=== PATIENT | female | born 1950 | race Caucasian/White ===

== ENCOUNTER 2017-11-10 10:49 | Outpatient (CLI) | payer MEDICARE, BC ==
[2017-11-10 18:12] LABS: BASOPHILS % (AUTO) 0.7 %; EOSINOPHILS # (AUTO) 0.1 10^3/uL (0.0-0.7); EOSINOPHILS % (AUTO) 1.8 %; HGB - HEMOGLOBIN 13.4 g/dL (12.0-16.0); LYMPHOCYTES # (AUTO) 1.4 10^3/uL (1.5-3.5); LYMPHOCYTES % (AUTO) 31.2 %; MEAN CORPUSCULAR HEMOGLOBIN 28.6 pg (27.0-31.0); MEAN CORPUSCULAR HGB CONC 33.5 g/dL (32.0-36.0); MEAN CORPUSCULAR VOLUME 85.1 fL (81.0-99.0); MEAN PLATELET VOLUME 7.4 fL (7.9-10.8); MONOCYTES # (AUTO) 0.3 10^3/uL (0.0-1.0); MONOCYTES % (AUTO) 6.7 %; NEUTROPHILS # (AUTO) 2.7 10^3/uL (1.5-6.6); NEUTROPHILS % (AUTO) 59.6 %; PLT - PLATELET COUNT 217 10^3/uL (130-450); RED CELL DISTRIBUTION WIDTH 13.1 % (12.0-15.0); WHITE BLOOD COUNT 4.6 x10^3/uL (4.8-10.8)
[2017-11-10 18:58] LABS: ALBUMIN 4.3 g/dL (3.2-5.5); ALBUMIN/GLOBULIN RATIO 1.6 (1.0-2.2); ALKALINE PHOSPHATASE 62 IU/L (42-121); ALT ALANINE AMINOTRANSFERASE 17 IU/L (10-60); AST ASPARTATE AMINOTRANSFERASE 17 IU/L (10-42); BILIRUBIN,TOTAL 0.8 mg/dL (0.2-1.0); BUN - BLOOD UREA NITROGEN 15 mg/dL (6-20); CALCIUM 9.2 mg/dL (8.5-10.3); CARBON DIOXIDE - CO2 28 mmol/L (21-32); CHLORIDE 102 mmol/L (101-111); CHOL/HDL RATIO 3.5 (<4.4); CHOLESTEROL 229 mg/dL; CREATININE 0.9 mg/dL (0.4-1.0); GFR - MDRD 63 (>89); GLUCOSE 87 mg/dL (70-100); HDL CHOLESTEROL 66 mg/dL; LDL CHOLESTEROL,CALCULATED 144 mg/dL; LDL/HDL RATIO 2.2 (<4.4); SODIUM 140 mmol/L (135-145); VLDL CHOLESTEROL 19 mg/dL
== END 2017-11-10 10:50 | disposition home or self-care (01) ==
LOC: LAB.F 10:49
PROVIDERS: ATTEND Physician Assistant Medical
DX: I10 Essential (primary) hypertension (principal); E78.5 Hyperlipidemia, unspecified; E03.9 Hypothyroidism, unspecified
CPT/HCPCS: 36415; 80053; 80061; 83721; 84443; 85025

== ENCOUNTER 2018-02-10 15:22 | Outpatient (CLI) | payer MEDICARE, BC ==
--- NOTE | 2018-02-10 16:10 | XRAY Report ---
Reason: PERSISTENT COUGH AFTER VIRAL RESPIRATORY INFECTION Procedure Date: 02/10/2018 Accession Number: [id number] / [id number] Procedure: XR - Chest 2 View X-Ray CPT Code: 17268 FULL RESULT: EXAM: CHEST RADIOGRAPHY EXAM DATE: 02/10/2018 03:40 PM. CLINICAL HISTORY: Persistent cough after viral respiratory infection. COMPARISON: None. TECHNIQUE: 2 views. FINDINGS: Lungs/Pleura: No focal opacities evident. No pleural effusion. No pneumothorax. Normal volumes. Mediastinum: Heart and mediastinal contours are unremarkable. Other: None. IMPRESSION: No acute cardiopulmonary abnormality. RADIA
== END 2018-02-10 15:23 | disposition home or self-care (01) ==
LOC: DI 15:22
PROVIDERS: ATTEND Registered Nurse
DX: R05 Cough (principal)
CPT/HCPCS: 71046

== ENCOUNTER 2018-06-26 00:59 | Emergency (ER) | payer MEDICARE, BC ==
--- NOTE | 2018-06-26 01:11 | ED Physician Documentation ---
PD HPI HEENT - Stated complaint Stated Complaint: NOSEBLEED - Chief complaint Chief Complaint: Heent - History obtained from History obtained from: Patient - History of Present Illness Timing - onset: How many weeks ago (1) Timing - details: Abrupt onset, Intermittant Pain level max: 0 Pain level now: 0 Location: Nose Improves: Nothing Worsens: Other (nothing) Associated symptoms: No: Fever, Congestion, Rhinorrhea, Facial swelling, Headache, Cough Similar symptoms before: Has not had sx before Recently seen: Not recently seen - Additional information Additional information: c/o intermittent right nare epistaxis x 6 days, atraumatic. Review of Systems Constitutional: reports: Reviewed and negative Nose: reports: Epistaxis. denies: Rhinorrhea / runny nose, Congestion, Sinus pressure / pain PD PAST MEDICAL HISTORY - Past Medical History Past Medical History: No Cardiovascular: Hypertension - Present Medications Home Medications: Ambulatory Orders Medication Instructions Recorded Confirmed Amburana 06/26/18 Lisinopril 10 mg PO DAILY 06/26/18 06/26/18 Naproxen Sodium [Aleve] 220 mg PO PRN PRN 06/26/18 06/26/18 Thyroid,Pork [[place] Thyroid] 15 mg PO DAILY 06/26/18 06/26/18 - Allergies Allergies/Adverse Reactions: Allergies Allergy/AdvReac Type Severity Reaction Status Date / Time neomycin AdvReac Rash Verified 06/26/18 01:05 PD ED PE NORMAL - Vitals Vital signs reviewed: Yes - General General: Alert and oriented X 3, No acute distress, Well developed/nourished - HEENT HEENT: Moist mucous membranes, Pharynx benign PD ED PE EXPANDED - HEENT HEENT: Other (no active bleeding nor dried/clotted blood to suggest source. ) Results - Vitals Vitals: Oxygen O2 Source Room air - Labs Labs: Laboratory Tests 06/26/18 06/26/18 01:54 01:54 WBC 5.1 RBC 4.56 Hgb 13.0 Hct 38.6 MCV 84.8 MCH 28.6 MCHC 33.7 RDW 12.7 Plt Count 197 MPV 7.2 L Neut # (Auto) 2.3 Lymph # (Auto) 2.2 [place] # (Auto) 0.5 Eos # (Auto) 0.1 Baso # (Auto) 0.0 Absolute Nucleated RBC 0.00 Nucleated RBC % 0.1 PT 11.1 INR 1.0 APTT 28.5 PD MEDICAL DECISION MAKING - ED course Complexity details: reviewed results, re-evaluated patient, considered dif ferential, d/w patient ED course: reassuring blood tests. there was no bleeding during ED stay and careful inspection of right nare did not reveal or suggest source (for consideration of cautery or packing). Departure - Departure Disposition: 01 Home, Self Care Clinical Impression: Epistaxis Condition: Good Instructions: ED Nosebleed Follow-Up: Sharla Weiss ARNP [Primary Care Provider] - Discharge Date/Time: 06/26/18 02:59
[2018-06-26] MEDS ORDERED: OXYMETAZOLINE NASAL SPRAY NAS STA (01:21)
[2018-06-26] MEDS ORDERED: LIDOCAINE VISCOUS 2% 15 ML UDC MM STA (01:21)
[2018-06-26 02:06] LABS: BASOPHILS % (AUTO) 0.6 %; EOSINOPHILS # (AUTO) 0.1 10^3/uL (0.0-0.7); EOSINOPHILS % (AUTO) 2.7 %; LYMPHOCYTES # (AUTO) 2.2 10^3/uL (1.5-3.5); LYMPHOCYTES % (AUTO) 42.3 %; MEAN CORPUSCULAR HEMOGLOBIN 28.6 pg (27.0-31.0); MEAN CORPUSCULAR HGB CONC 33.7 g/dL (32.0-36.0); MEAN CORPUSCULAR VOLUME 84.8 fL (81.0-99.0); MEAN PLATELET VOLUME 7.2 fL (7.9-10.8); MONOCYTES # (AUTO) 0.5 10^3/uL (0.0-1.0); MONOCYTES % (AUTO) 8.9 %; NEUTROPHILS # (AUTO) 2.3 10^3/uL (1.5-6.6); NEUTROPHILS % (AUTO) 45.5 %; PLT - PLATELET COUNT 197 10^3/uL (130-450); PT - PROTHROMBIN TIME 11.1 secs (9.9-12.6); RED BLOOD COUNT 4.56 10^6/uL (4.20-5.40); RED CELL DISTRIBUTION WIDTH 12.7 % (12.0-15.0); WHITE BLOOD COUNT 5.1 x10^3/uL (4.8-10.8)
[2018-06-26 02:13] LABS: PARTIAL THROMBOPLASTIN TIME 28.5 secs (24.9-33.3)
[2018-06-26 02:55] VITALS: BP 160/84
== END 2018-06-26 02:59 | disposition home or self-care (01) ==
LOC: ED 00:59
DX: R04.0 Epistaxis (principal); I10 Essential (primary) hypertension
CPT/HCPCS: 36415; 85025; 85610; 85730; 99282; 99283; A9270

== ENCOUNTER 2019-04-12 14:56 | Outpatient (CLI) | payer MEDICARE, BC ==
--- NOTE | 2019-05-01 12:29 | Mammography Report ---
Reason: SCREENING MAMMO Procedure Date: 04/12/2019 Accession Number: [id number] / [id number] Procedure: FABIAN - Screening Mammo w/Tania CPT Code: Final Report FULL RESULT: EXAM: Screening Mammo w/Tania DATE: 04/12/2019 3:43 PM CLINICAL HISTORY: History of benign left breast biopsy. For routine screening. TECHNIQUE: (B) - Bilateral CC and MLO views were obtained. COMPARISON: None PARENCHYMAL PATTERN: (A) - The breasts demonstrate scattered fibroglandular densities bilaterally. FINDINGS: There are no suspicious calcifications, skin thickening, or areas of distortion. In the lateral aspect of the right breast there are 2 or 3 faint nodular densities best appreciated on CC tania 16 with possible correlates in both the superior and inferior portions of the breast on the MLO projection tania image 20. On the left there are 2 nodular densities in the upper outer portion of the breast best seen on MLO tania 23 and CC tania 25 and 20. Suggest further evaluation by bilateral spot compression and true lateral views and possible ultrasound. IMPRESSION: Incomplete examination. BI-RADS category 0. Bilateral additional views and possible ultrasound RECOMMENDATION: (ADDMU) - Additional views using both Mammography and Ultrasound recommended. Bilaterally. If any prior studies become available for comparison additional imaging may be unnecessary. BI-RADS CATEGORY: (0) - Incomplete Examination - need additional evaluation. STANDARD QUALIFYING STATEMENTS: 1. This examination was not reviewed with the aid of Computer-Aided Detection (CAD). 2. A negative or benign imaging report should not preclude biopsy if clinically suspicious findings are present. 3. Dense breasts may obscure an underlying neoplasm. 4. This examination was reviewed with the aid of 3D breast imaging (tomosynthesis).
== END 2019-04-12 14:57 | disposition home or self-care (01) ==
LOC: DI 14:56
PROVIDERS: ATTEND Naturopath
DX: Z12.31 Encounter for screening mammogram for malignant neoplasm of breast (principal); R92.8 Other abnormal and inconclusive findings on diagnostic imaging of breast
CPT/HCPCS: 77063; 77067

== ENCOUNTER 2019-04-26 08:44 | Outpatient (CLI) | payer MEDICARE, BC ==
--- NOTE | 2019-05-01 11:16 | DEXA Report ---
Reason: OSTEOPOROSIS Procedure Date: 04/26/2019 Accession Number: [id number] / [id number] Procedure: DEX - Dexa Spine and/or Hip CPT Code: Final Report FULL RESULT: EXAM: Dexa Spine and/or Hip DATE: 04/26/2019 9:15 AM CLINICAL HISTORY: OSTEOPOROSIS. Postmenopausal female. TECHNIQUE: Dual energy x-ray absorptiometry (DXA) was performed on a [employer] System. Regions measured are the AP Spine, femoral neck, and if needed forearm. COMPARISON: None. In accordance with the International Society for Clinical Densitometry (ISCD) guidelines, data from previous exams may be reanalyzed using current recommendations and techniques. This is done to allow a more accurate basis for comparison with the current study. FINDINGS: The data for the lumbar spine is as follows: BMD (g/cm/cm) T-SCORE Z-SCORE REGION L1 0.838 -2.4 -0.7 L2 0.891 -2.6 -0.9 L3 1.019 -1.5 0.2 L4 1.184 -0.1 1.6 TOTAL 0.986 -1.6 0.1 NOTE: All evaluable vertebrae are used for classification The data for the hip is as follows: BMD (g/cm/cm) T-SCORE Z-SCORE REGION Neck 0.725 -2.2 -0.7 TOTAL 0.776 -1.8 -0.5 NOTE: The femoral neck or total proximal femur, whichever is lowest, is used for classification. IMPRESSION: THE WHO CLASSIFICATION BASED ON THE INTERNATIONAL REFERENCE STANDARD IS OSTEOPENIA, REFERENCE LEFT FEMORAL NECK. THE FRACTURE RISK IS INCREASED. RECOMMENDATION: Patients with diagnosis of osteoporosis or osteopenia should have regular bone mineral density assessment. For those eligible for Medicare, routine testing is allowed once every 2 years. Testing frequency can be increased for patients who have rapidly progressing disease or for those who are receiving medical therapy to restore bone mass. COMMENT: World Health Organization (WHO) definitions for osteoporosis and osteopenia: NORMAL BMD: T-score at -1.0 or higher, fracture risk is low OSTEOPENIA BMD: T-score between -1.0 and -2.5, fracture risk is increased. OSTEOPOROSIS BMD: T-score at -2.5 or lower, fracture risk is high. National Osteoporosis Foundation recommends: 1. Obtain adequate dietary calcium (at least 1200 mg per day) and vitamin D (400-800 international units per day). 2. Participate, as appropriate, in regular weightbearing and muscle-strengthening exercise. 3. Avoid tobacco use and reduce alcohol and caffeine intake. 4. For more detailed information see the website at www.NOF.org.
== END 2019-04-26 08:45 | disposition home or self-care (01) ==
LOC: DI 08:44
PROVIDERS: ATTEND Naturopath
DX: M85.88 Other specified disorders of bone density and structure, other site (principal)
CPT/HCPCS: 77080

== ENCOUNTER 2019-05-01 08:41 | Outpatient (CLI) | payer MEDICARE, BC ==
--- NOTE | 2019-05-01 09:49 | XRAY Report ---
Reason: SCOLIOSIS Procedure Date: 05/01/2019 Accession Number: [id number] / [id number] Procedure: XR - Lumbar Spine 2 View CPT Code: Final Report FULL RESULT: EXAM: LUMBOSACRAL SPINE RADIOGRAPHY EXAM DATE: 05/01/2019 09:28 AM. CLINICAL HISTORY: Scoliosis. Back pain. COMPARISONS: None. TECHNIQUE: 3 upright views. FINDINGS: Alignment: There is right convex curvature of the lumbar spine measuring approximately 37 degrees from the superior endplate of L1 to the inferior endplate of L4. No spondylolisthesis. Bones: Five [id number] lumbar vertebral bodies are present. No fractures or bone lesions. Disks: There are mild to moderate degenerative disk changes of the lumbar spine. Facets: There are mild degenerative facet changes of the lower lumbar spine. Sacroiliac Joints: Unremarkable. Soft Tissues: Normal. The visualized bowel gas pattern is normal. IMPRESSION: 1. Right convex scoliosis of the lumbar spine, as described above. 2. Multilevel degenerative changes of the lumbar spine. RADIA
== END 2019-05-01 08:42 | disposition home or self-care (01) ==
LOC: DI 08:41
PROVIDERS: ATTEND Nurse Practitioner Psychiatric/Mental Health
DX: M51.36 Other intervertebral disc degeneration, lumbar region (principal); M47.816 Spondylosis without myelopathy or radiculopathy, lumbar region; M41.9 Scoliosis, unspecified
CPT/HCPCS: 72100

== ENCOUNTER 2019-05-14 14:15 | Outpatient (CLI) | payer MEDICARE, BC ==
--- NOTE | 2019-05-14 15:45 | Mammography Report ---
Reason: ABNORMAL MAMMOGRAM Procedure Date: 05/14/2019 Accession Number: [id number] / [id number] Procedure: FABIAN - Diag Special Views Dig Bilat CPT Code: Final Report FULL RESULT: EXAM: Diag Special Views Dig Bilat DATE: 05/14/2019 3:04 PM CLINICAL HISTORY: Diagnostic examination. The patient is recalled from screening for bilateral breast nodules. TECHNIQUE: (B) - Bilateral bilateral spot CC, bilateral spot MLO and bilateral ML images are obtained. Bilateral focused breast ultrasound is performed. COMPARISON: 04/12/2019. PARENCHYMAL PATTERN: (A) - The breast(s) demonstrate(s) scattered fibroglandular densities. FINDINGS: Multiple nodules in the lateral right breast hypodense and partially obscured on spot views but redemonstrated tomographically. Focused right breast ultrasound demonstrates well-circumscribed internally anechoic thin-walled small cysts with increased through transmission compatible is grouping of microcysts, typically benign finding, 8:00 position 5 cm from the nipple corresponding to the mammographic findings. The previously described 2 nodular densities in the upper outer portion of the left breast partially dissipates with spot views with tubular correlate on left ML tomographic image 14 is seen 5 cm from the nipple in the upper outer quadrant and left ML tomographic image 21 potentially demonstrating the other previously questioned nodule is isodense partially obscured 5 mm finding. Focused left breast ultrasound is performed which demonstrates a few prominent simple appearing cyst without internal solid component or debris and increased through transmission. These appear well circumscribed and measure up to 0.5 cm, 9:00 position 2 cm from the nipple and 4:00 position 5 cm from the nipple, typically benign There are no suspicious masses, calcifications, or areas of distortion. IMPRESSION: Benign findings. BI-RADS category 2. RECOMMENDATION: (ANNUAL) - Recommend routine annual screening mammography. BI-RADS CATEGORY: (2) - Benign Findings. STANDARD QUALIFYING STATEMENTS: 1. This examination was not reviewed with the aid of Computer-Aided Detection (CAD). 2. A negative or benign imaging report should not preclude biopsy if clinically suspicious findings are present. 3. Dense breasts may obscure an underlying neoplasm. 4. This examination was reviewed with the aid of 3D breast imaging (tomosynthesis).
== END 2019-05-14 14:16 | disposition home or self-care (01) ==
LOC: DI 14:15
PROVIDERS: ATTEND Naturopath
DX: N60.11 Diffuse cystic mastopathy of right breast (principal); N60.12 Diffuse cystic mastopathy of left breast
CPT/HCPCS: 76642; 77066

== ENCOUNTER 2019-07-26 15:52 | Outpatient (CLI) | payer MEDICARE, BC ==
--- NOTE | 2019-07-26 17:20 | Ultrasound Report ---
PROCEDURE: Pelvic w/Transvaginal INDICATIONS: SACROCOLPOPEXY TECHNIQUE: Real-time scanning was performed of the pelvic organs, with image documentation. Additional endovagi nal scanning was necessary due to incomplete visualization of the adnexal and endometrial structures by transabdominal scanning. COMPARISON: None. FINDINGS: Transabdominal and transvaginal imaging was performed. Prior hysterectomy and oophorectomy . Scanning reveals no abnormal fluid collection or mass. Bowel gas does obscure visualization of sign ificant portions of the peritoneal space and retroperitoneum. IMPRESSION: No sonographic abnormality is found. Please note that bowel gas does obscure clear visualization of s ignificant portions of the peritoneal space and retroperitoneum in this patient who has undergone ari or hysterectomy and bilateral oophorectomy by report. If unusual symptomatology persists follow-up by CT scanning may become necessary. Reviewed by: Gordy Ramos MD on 07/26/2019 4:19 PM BALWINDER Approved by: Gordy Ramos MD on 07/26/2019 4:19 PM BALWINDER Station ID: [id number]
== END 2019-07-26 15:53 | disposition home or self-care (01) ==
LOC: DI 15:52
PROVIDERS: ATTEND Acupuncturist
DX: R14.0 Abdominal distension (gaseous) (principal)
CPT/HCPCS: 76830; 76856

== ENCOUNTER 2020-01-15 13:02 | Outpatient (CLI) | payer MEDICARE, BC ==
--- NOTE | 2020-01-15 13:58 | SLEEP CARE CONSULTATION ---
Information from patient questionnaire entered by Aparna Rosario. I have reviewed and concur with the information entered by Aparna Rosario. This document represents the service I personally performed and the decisions made by me, Edda Jarrett ARNP. History of Present Illness Service Date and Time: 01/15/2020 1302 Reason for Visit: New patient Chief Complaint: reports: Insomnia (has hard time falling asleep and doesn't stay asleep), Unrefreshed sleep, Snoring (soft occasional snoring per her ), Excessive daytime sleepiness, Fatigue, Frequent awakenings at night (as many as 4 times a night). denies: Observed pauses in breathing, Other Date of Onset: most of my life Usual bedtime: about 10 pm Time it takes to fall asleep: 60 mins or more Snores at night: Yes (occasionally) Observed to quit breathing while asleep: No Sleeps alone due to snoring: No Number of times waking at night: 2 or more Reasons for waking at night: reports: Bathroom (possibly). denies: Choking, Snoring, Gasping for air Toss, Turn, or Twitch while sleeping: No (don't really know) Recalls having dreams: No (rarely dream) Usually gets out of bed at: 7-8 am Feels refreshed in the morning: No Morning headache: Yes (recently more often, come and go) Sleepy or fatigued during the day: Yes Ever fallen asleep while driving: No Takes day naps: No Dreams during day naps: No Prior sleep studies: No Type of Sleep Study: Home sleep study Additional HPI information: I had the pleasure of seeing ERA IVY today regarding the possibility of her having a sleep disorder. Her current complaints are insomnia, frequent awakenings at night, unrefreshed sleep, fatigue and excessive daytime sleepiness. She feels that she doesn't sleep and is tired of being tired. She tosses in bed all night. No family history of sleep apnea but father is overweight and is supposed to be on oxygen at night. - Parasomnia Symptoms Ever been unable to move upon waking from sleep: No Walks in sleep: No Talks in sleep: No Ever acted out dreams in sleep: No Ever felt weak in the knees when startled or emotional: No Bothered by creepy, crawly, restless sensations in legs: No (maybe) Problems with memory or concentration: Yes (not a problem, just notices it occasionally) Subjective Initial [place] Sleepiness Scale score: 3 (in 2019) Past Medical History Past Medical History: reports: Hypertension, Arthritis, Anxiety, Other (low back, hip and leg pain ; bladder leakage). denies: Congestive Heart Failure, D iabetes, Coronary Heart Disease, Arrythmia, Anemia, Depression, GERD Social History The patient's occupation is a Retired. Patient is and lives in [place]. Have you smoked in the past 12 months: No Alcohol use: No Caffeine use: Yes Caffeine amount and frequency: rarely, chocolat eater Family History Family history of sleep disordered breathing: Yes (possibly father) Allergies and Home Medications Drug allergies reviewed: Yes (neomycin, eye dilation drops) Home medication list reviewed: Yes (see list) Review of Systems Weight gain over past 5 years: 8-10 Weight loss over past 5 years: 8 Cardiovascular: reports: high blood pressure. denies: irregular heart rate or pulse Respiratory: denies: shortness of breath Gastrointestinal: reports: heartburn (occasional). denies: difficulty swallowing Urinary: reports: other (bladder spasms) Neurological: reports: headaches, head trauma (fall in October, has had headaches since; A CT is being scheduled.). denies: seizure Psychiatric: reports: anxiety. denies: depression Ear/Nose/Throat: reports: sinus problems (occasional, not for a number of years), nose bleeds (once episode over a year ago), wisdom teeth removed, other (change in glasses prescription, seeing if this is contributing to headaches). denies: nasal congestion, dry mouth/throat, injury to nose, tonsillectomy Endocrine: denies: thyroid disease Musculoskeletal: reports: back pain, muscle pain or cramping Immunologic: reports: sneezing, allergies to food or environment (seasonal allergies) Physical Exam Blood Pressure: 133/88 Cuff size: wrist Heart Rate: 79 O2 Saturation: 98 Height: 5 ft 4 in Weight: 132 lb Body Mass Index: 22.6 BMI Classification: Healthy weight Neck circumference: 13 (inches) Nostrils: patent to airflow Turbinates: swollen Septum: midline Mouth and throat: narrow oropharynx Uvula visualization: 25% Mallampati Class III Tongue: enlarged in size with teeth miller on lateral edges Tonsils: 1+ Neck: normal w/o lymphadenopathy or thyromegaly Heart: regular rate and rhythm Lungs: clear bilaterally Impression and Plan 1. Suspected Obstructive Sleep Apnea-Hypopnea Syndrome, as suggested by a history of irregular snoring, frequent awakening during the night, unrefreshed sleep, cognitive impairment, and excessive daytime sleepiness. I reviewed with patient that a narrow oropharynx and obesity are common predisposing factors for obstructive sleep apnea-hypopnea syndrome. I recommend proceeding to polysomnography to confirm the diagnosis and to assess severity. If the patient has significant sleep disordered breathing, a manual CPAP titration study will also be performed to find the optimal treatment pressure. I informed the patient of what the sleep studies involve and after some discussion, obtained agreement to proceed. The pathophysiology of obstructive sleep apnea-hypopnea syndrome was discussed with the patient and health risks of cardiovascular and cerebr ovascular disease if not treated. AAS brochure for obstructive sleep apnea- hypopnea syndrome given and reviewed. Risks of drowsy driving discussed in detail and patient advised to avoid long distance driving and to hand assembler for puller over at the first sign of drowsiness. Patient agreed to plan. * Schedule polysomnography +- manual CPAP titration study. * Avoid long distance driving or driving when feeling sleepy. * Avoid alcohol, sedative and muscle relaxant around bedtime. * Review instructions provided by trained office staff on how to prepare for the sleep study. * Return for follow-up after sleep study completed. Visit Type: In Office Time Spent with Patient (minutes): 35 Provider Statement: I spent 100% of the Face to Face Visit with the patient with greater than 50% spent counseling the patient and coordination of care.
[2020-01-15 13:59] VITALS: BP 133/88
== END 2020-01-15 13:03 | disposition home or self-care (01) ==
LOC: SC 13:02
PROVIDERS: ATTEND Nurse Practitioner Family
DX: G47.10 Hypersomnia, unspecified (principal); G47.8 Other sleep disorders; R41.89 Other symptoms and signs involving cognitive functions and awareness
CPT/HCPCS: 99203; G0463; 99212

== ENCOUNTER 2020-03-17 20:36 | Outpatient (CLI) | payer MEDICARE, BC | END 2020-03-17 20:37 | disposition home or self-care (01) | LOC: SC 20:36 | PROVIDERS: ATTEND Nurse Practitioner Family | DX: G47.61 Periodic limb movement disorder (principal) | CPT/HCPCS: 95810 ==

== ENCOUNTER 2020-03-25 10:20 | Outpatient (CLI) | payer MEDICARE, BC ==
--- NOTE | 2020-03-25 10:42 | SLEEP CARE CONSULTATION ---
Information from patient questionnaire entered by Aparna Rosario. I have reviewed and concur with the information entered by Aparna Rosario. This document represents the service I personally performed and the decisions made by , Edda Jarrett ARNP. History of Present Illness Service Date and Time: 03/25/2020 1020 Initial [place] Sleepiness Scale score: 3 (in 2019) Current [place] Sleepiness Scale score: 2 Additional HPI information: ERA IVY returns for follow up and results of the recently performed polysomnography. The patient was informed of the following findings: no significant sleep disordered breathing with an average AHI of 0.3 and a rama oxygen saturation of 92%. She had moderate PLMs and did not sleep supine during the study. I explained the pathophysiology behind obstructive sleep apnea. Patient does not have sleep apnea and was advised how weight gain could increase the risk of developing sleep apnea in the future. Patient has light snoring. Snoring can be reduced by weight loss. Weight loss is best achieved with diet consult. Patient instructed to contact PCP for referral. Snoring can also be treated with an oral appliance from a dentist. Advised to check insurance coverage. In addition, an ENT evaluation can be do to see if other treatment is indicated. Patient does not drink alcohol. Patient was cautioned about risks of drowsy driving until sleepiness symptoms resolve. Patient denies drowsy driving. Sleep Study - Results Type of Sleep Study: Polysomnography Prior sleep studies: Yes Year and Where: home study Polysomnography/Home Sleep Study results: IMPRESSION: The quality of the study is good. The patient had reduced sleep efficiency due to several prolonged awakenings in the first half of the night.. The sleep architecture was otherwise normal. Respiratory monitoring showed no significant sleep disordered breathing (AHI = 0.3) or hypoxia (rama oxygen saturation of 92%). The patient did not sleep supine (supine AHI = 0.0; non-supine = 0.27). Snore was light in intensity. There was moderate periodic leg movement of sleep not associated with sleep fragmentation. Cardiac rhythm was normal sinus rhythm without significant arrhythmia. No abnormal behavior (parasomnia) observed during the night. Allergies and Home Medications Home medication list reviewed: Yes (no changes) Review of Systems Review of systems same as previous: Yes (no changes) Physical Exam Heart Rate: 74 O2 Saturation: 95 Height: 5 ft 4 in Weight: 136 lb Body Mass Index: 23.3 BMI Classification: Healthy weight Impression and Plan 1. Snoring but no significant sleep disordered breathing. Patient advised that often weight loss will reduce snoring as well as apnea risk. An oral appliance can also be used for snoring. This would require a dental consultation. Patient cautioned not to use other online appliances as can cause bite issues. A list of accredited dentists in area and one local dentist who makes oral appliances given. Patient is advised to check if insurance will cover. An ENT consult can also be helpful to determine if any other treatment is an option. 2. Periodic limb movement, [light], that did not fragment patients sleep. Periodic limb movement of sleep (PLMS) is characterized by episodes of repetitive limb movements that occur during sleep and usually involve the lower limbs. The etiology is unknown but can be associated with restless leg syndrome (RLS), neuropathy, spinal cord diseases, kidney disease, rheumatological disorders, narcolepsy, obstructive sleep apnea, and REM sleep behavior disorder. Other factors that can increase PLMS and/or RLS are heredity and iron deficiency as reflected by a low serum ferritin level below 50 to 75mcg / L. Several medications can precipitate or aggravate PLMS such as selective serotonin re-uptake inhibitor antidepressants, tricyclic antidepressants, lithium, and dopamine receptor antagonists with the exception of bupropion. Caffeine can also aggravate PLMS and should be avoided. Sleep hygiene methods can also improve sleep as well as lifestyle changes such as regular exercise. Patient was advised that no treatment is needed at this time. If symptoms increase, then further evaluation is indicated. * Follow up as needed with PCP * Avoid alcohol consumption near bedtime * The patient is cautioned about driving until sleepiness is completely resolved. * Return as needed. Visit Type: In Office Time Spent with Patient (minutes): 16 Provider Statement: I spent 100% of the Face to Face Visit with the patient with greater than 50% spent counseling the patient and coordination of care.
== END 2020-03-25 10:21 | disposition home or self-care (01) ==
LOC: SC 10:20
PROVIDERS: ATTEND Nurse Practitioner Family
DX: G47.61 Periodic limb movement disorder (principal); R06.83 Snoring
CPT/HCPCS: 99212; G0463

== ENCOUNTER 2021-11-03 08:57 | Outpatient (CLI) | payer MEDICARE, BC ==
[2021-11-03 15:06] LABS: BASOPHILS % (AUTO) 0.9 %; EOSINOPHILS # (AUTO) 0.1 10^3/uL (0.0-0.7); EOSINOPHILS % (AUTO) 2.8 %; HGB - HEMOGLOBIN 13.4 g/dL (12.0-16.0); LYMPHOCYTES # (AUTO) 1.8 10^3/uL (1.5-3.5); LYMPHOCYTES % (AUTO) 37.4 %; MEAN CORPUSCULAR HEMOGLOBIN 28.5 pg (27.0-31.0); MEAN CORPUSCULAR HGB CONC 32.7 g/dL (32.0-36.0); MEAN CORPUSCULAR VOLUME 87.2 fL (81.0-99.0); MONOCYTES # (AUTO) 0.4 10^3/uL (0.0-1.0); MONOCYTES % (AUTO) 7.7 %; NEUTROPHILS # (AUTO) 2.4 10^3/uL (1.5-6.6); PLT - PLATELET COUNT 262 10^3/uL (130-450); RED CELL DISTRIBUTION WIDTH 11.8 % (12.0-15.0); WHITE BLOOD COUNT 4.7 x10^3/uL (4.8-10.8)
[2021-11-03 15:55] LABS: ALBUMIN 4.2 g/dL (3.2-5.5); ALBUMIN/GLOBULIN RATIO 1.4 (1.0-2.2); ALKALINE PHOSPHATASE 57 IU/L (42-121); ALT ALANINE AMINOTRANSFERASE 22 IU/L (10-60); AST ASPARTATE AMINOTRANSFERASE 21 IU/L (10-42); BUN - BLOOD UREA NITROGEN 24 mg/dL (6-20); CHOL/HDL RATIO 4.1 (<4.4); CHOLESTEROL 272 mg/dL; GFR - MDRD 55 (>89); HDL CHOLESTEROL 66 mg/dL; LDL CHOLESTEROL,CALCULATED 190 mg/dL; LDL/HDL RATIO 2.9 (<4.4); TOTAL PROTEIN 7.2 g/dL (6.7-8.2); TRIGLYCERIDES 82 mg/dL; VLDL CHOLESTEROL 16 mg/dL
[2021-11-03 15:59] LABS: CALCIUM 9.3 mg/dL (8.5-10.3); CARBON DIOXIDE - CO2 29 mmol/L (21-32); CHLORIDE 100 mmol/L (101-111); GLUCOSE 93 mg/dL (70-100); POTASSIUM 3.6 mmol/L (3.5-5.0); SODIUM 137 mmol/L (135-145)
== END 2021-11-03 08:58 | disposition home or self-care (01) ==
LOC: LAB.S 08:57
PROVIDERS: ATTEND Registered Nurse
DX: I10 Essential (primary) hypertension (principal); E78.5 Hyperlipidemia, unspecified; E03.9 Hypothyroidism, unspecified
CPT/HCPCS: 36415; 80053; 80061; 83721; 84443; 85025

== ENCOUNTER 2022-01-08 14:03 | Outpatient (CLI) | payer MEDICARE, BC ==
--- NOTE | 2022-01-11 11:12 | Mammography Report ---
BILATERAL DIGITAL SCREENING MAMMOGRAM 3D/2D: 01/08/2022 CLINICAL: Routine screening. Comparison is made to exams dated: 05/14/2019 mammogram and 04/12/2019 mammogram - [facility]. There are scattered areas of fibroglandular density in both breasts (category b / 25%-50% glandular t issue). There are benign post operative findings in the left breast. No significant masses, calcifications, or other findings are seen in either breast. There has been no significant interval change. IMPRESSION: BENIGN There is no mammographic evidence of malignancy. A 1 year screening mammogram is recommended. Based on the Tyrer Cuzick model (a risk assessment model) the patients lifetime risk is 3.6% and her 10 year risk is 2.1%. According to the ACR, ACS, and NCCN guidelines, an annual breast MRI exam david g with mammogram is recommended if the patients lifetime risk is 20% or greater. This exam was interpreted at Station ID: [id number]. NOTE: For mammograms, a report in lay terms will be sent to the patient. Approximately 15% of breast malignancies will not be visualized mammographically. In the management of a palpable breast mass, a negative mammogram must not discourage biopsy of a clinically suspicious lesion. Electronically Signed By: Betito [email or web address]/[email or web address]:01/08/2022 18:29:43 ACR BI-RADS Category 2: Benign Finding(s) 3342F PARENCHYMAL PATTERN: (A) - The breast(s) demonstrate(s) scattered fibroglandular densities. BI-RADS CATEGORY: (2) - 2 RECOMMENDATION: (ANNUAL) - Recommend routine annual screening mammography. [id number] 1 year screening LATERALITY: (B)
== END 2022-01-08 14:04 | disposition home or self-care (01) ==
LOC: DI 14:03
DX: Z12.31 Encounter for screening mammogram for malignant neoplasm of breast (principal)

== ENCOUNTER 2022-04-02 12:46 | Outpatient (CLI) | payer MEDICARE, BC ==
--- NOTE | 2022-04-02 15:02 | DEXA Report ---
PROCEDURE: Dexa Spine and/or Hip INDICATIONS: POST MENOPAUSAL TECHNIQUE: Dual energy x-ray absorptiometry (DXA) was performed on a [employer] System. Regions measur ed are the AP Spine, femoral neck, and if needed forearm. COMPARISON: 04/26/2019 FINDINGS: Lumbar Spine: Bone Mineral Density 1.001 g/cm/cm,T score -1.5, osteopenia. Previous T score -1.6. No significant interval change. Left Femoral Neck: Bone Mineral Density 0.718 g/cm/cm, T score -2.3, osteopenia. Previous T score -2.2 Left Hip: Bone Mineral Density 0.726 g/cm/cm,T score -2.2, osteopenia. Previous T score -1.8. Significant inte rval decrease in bone mineral density (T score greater or equal to -1.0: NORMAL) (T score from -1.1 to -2.4: OSTEOPENIA) (T score less than or equal to -2.5 to: OSTEOPOROSIS) Impression: Osteopenia. Patients with diagnosis of osteoporosis or osteopenia should have regular bone mineral density assess ment. For those eligible for Medicare, routine testing is allowed once every 2 years. Testing frequ ency can be increased for patients who have rapidly progressing disease or for those who are receivin g medical therapy to restore bone mass. Reviewed by: Chester Fields MD on 04/02/2022 3:01 PM PST Approved by: Chester Fields MD on 04/02/2022 3:01 PM PST Station ID: [id number]
== END 2022-04-02 12:47 | disposition home or self-care (01) ==
LOC: DI 12:46
PROVIDERS: ATTEND Registered Nurse
DX: M85.89 Other specified disorders of bone density and structure, multiple sites (principal); Z78.0 Asymptomatic menopausal state

== ENCOUNTER 2022-06-24 11:23 | Outpatient (CLI) | payer MEDICARE, BC ==
[2022-06-24 15:33] LABS: THYROID STIMULATING HORMONE 2.2 uIU/mL (0.34-5.60)
[2022-06-24 15:42] LABS: CREATININE,URINE 177.3 mg/dL; MICROALBUM/CREATININE RATIO,UR 6.2 ug/mg (<30.0); MICROALBUMIN,URINE 1.1 mg/dL (0-300.0)
[2022-06-24 16:02] LABS: ALBUMIN 3.9 g/dL (3.2-5.5); ALBUMIN/GLOBULIN RATIO 1.1 (1.0-2.2); BILIRUBIN,TOTAL 0.4 mg/dL (0.2-1.0); CALCIUM 9.3 mg/dL (8.5-10.3); CREATININE 0.9 mg/dL (0.4-1.0); POTASSIUM 4.3 mmol/L (3.5-5.0); TOTAL PROTEIN 7.6 g/dL (6.7-8.2)
[2022-06-24 20:54] LABS: ESTIMATED AVERAGE GLUCOSE 111 mg/dL (70-100); HEMOGLOBIN A1c% 5.5 % (4.27-6.07)
== END 2022-06-24 11:24 | disposition home or self-care (01) ==
LOC: LAB.S 11:23
PROVIDERS: ATTEND Internal Medicine
DX: E03.9 Hypothyroidism, unspecified (principal); Z79.899 Other long term (current) drug therapy; R35.81 Nocturnal polyuria; N28.1 Cyst of kidney, acquired
CPT/HCPCS: 36415; 80053; 82043; 82570; 83036; 84443

== ENCOUNTER 2022-07-12 07:03 | Outpatient (CLI) | payer MEDICARE, BC ==
--- NOTE | 2022-07-12 09:15 | Ultrasound Report ---
PROCEDURE: Retroperitoneal INDICATIONS: RENAL CYSTS TECHNIQUE: Real-time scanning was performed of the retroperitoneal organs, with image documentation. COMPARISON: None. FINDINGS: Kidneys: No hydronephrosis. The right kidney measures 10 cm. The left kidney measures 10 cm. There is right cortical thinning measuring 0.6 cm in thickness. The left cortex measures 1 cm. Multiple renal cysts, measuring up to 3 x 2.8 cm in the right lower pole, 1.9 x 1.9 cm of the left up per pole, and 1.6 x 1.3 cm in the left lower pole. Bladder: Pre-void bladder volume is 496 mL. Post-void residual is 20.4 mL. Pre-void images demonst rate no intraluminal masses or stones. On pre-void images, both ureteral jets are noted with color D oppler interrogation. (Of note, ureteral jets may not be detectable in up to 25% of cases due to ins ufficient differences in specific gravity between ureteral and bladder urine). Miscellaneous: No free abdominal fluid. IMPRESSION: There are bilateral renal cysts. No significant hydronephrosis. Post void residual is 20.4 cc. Reviewed by: Harman Mera MD on 07/12/2022 9:14 AM PDT Approved by: Harman Mera MD on 07/12/2022 9:14 AM PDT Station ID: [id number]
== END 2022-07-12 07:04 | disposition home or self-care (01) ==
LOC: DI 07:03
PROVIDERS: ATTEND Internal Medicine
DX: N28.1 Cyst of kidney, acquired (principal); Z79.899 Other long term (current) drug therapy

== ENCOUNTER 2022-10-20 13:54 | Outpatient (CLI) | payer MEDICARE, BC ==
[2022-10-20 19:41] LABS: HCT - HEMATOCRIT 41.4 % (37.0-47.0); HGB - HEMOGLOBIN 13.5 g/dL (12.0-16.0); MEAN CORPUSCULAR HEMOGLOBIN 28.2 pg (27.0-31.0); MEAN CORPUSCULAR HGB CONC 32.6 g/dL (32.0-36.0); MEAN CORPUSCULAR VOLUME 86.4 fL (81.0-99.0); MEAN PLATELET VOLUME 9.6 fL (7.9-10.8); RED BLOOD COUNT 4.79 10^6/uL (4.20-5.40); RED CELL DISTRIBUTION WIDTH 11.9 % (12.0-15.0); WHITE BLOOD COUNT 8.1 x10^3/uL (4.8-10.8)
[2022-10-20 19:53] LABS: ALBUMIN 4.6 g/dL (3.2-5.5); CALCIUM 10.2 mg/dL (8.5-10.3); CREATININE 0.9 mg/dL (0.6-1.3); PHOSPHORUS 3.1 mg/dL (2.5-5.0); POTASSIUM 3.8 mmol/L (3.5-4.5); URIC ACID 2.5 mg/dL (2.3-6.6)
== END 2022-10-20 13:55 | disposition home or self-care (01) ==
LOC: LAB.S 13:54
PROVIDERS: ATTEND Internal Medicine Nephrology
DX: N18.2 Chronic kidney disease, stage 2 (mild) (principal)
CPT/HCPCS: 36415; 80069; 81001; 81599; 82550; 82570; 82610; 83970; 84156; 84550; 85027; 87086

== ENCOUNTER 2022-10-21 08:00 | Outpatient (CLI) | payer MEDICARE, BC ==
[2022-10-21 15:03] LABS: BILIRUBIN,URINE NEGATIVE (NEGATIVE); GLUCOSE, URINE (UA) NEGATIVE (NEGATIVE); KETONES,URINE (UA) NEGATIVE (NEGATIVE); LEUKOCYTE ESTERASE, URINE NEGATIVE (NEGATIVE); NITRITE,URINE NEGATIVE (NEGATIVE); OCCULT BLOOD,URINE NEGATIVE (NEGATIVE); PROTEIN,URINE NEGATIVE (NEGATIVE); UROBILINOGEN,URINE 0.2 (NORMAL) E.U./dL (NORMAL)
[2022-10-21 15:08] LABS: CLARITY,URINE CLEAR (CLEAR)
[2022-10-21 15:33] LABS: CREATININE,URINE 63.6 mg/dL; PROTEIN/CREATININE RATIO,URINE 0.1 (<=0.2)
== END 2022-10-21 23:59 | disposition home or self-care (01) ==
LOC: LAB.R 08:00
PROVIDERS: ATTEND Internal Medicine Nephrology
DX: N18.2 Chronic kidney disease, stage 2 (mild) (principal); R35.81 Nocturnal polyuria
CPT/HCPCS: 81001; 81003; 82570; 84156; 87086

== ENCOUNTER 2022-12-07 11:04 | Outpatient (CLI) | payer MEDICARE, BC | END 2022-12-07 11:05 | disposition short-term general hospital (02) | LOC: EMS 11:04 | DX: R07.89 Other chest pain (principal); R68.84 Jaw pain; R42 Dizziness and giddiness | CPT/HCPCS: A0425; A0427 ==

== ENCOUNTER 2023-03-31 10:51 | Outpatient (CLI) | payer MEDICARE, BC ==
[2023-03-31 15:07] LABS: BASOPHILS # (AUTO) 0.1 10^3/uL (0.0-0.1); BASOPHILS % (AUTO) 1.2 %; EOSINOPHILS # (AUTO) 0.1 10^3/uL (0.0-0.7); EOSINOPHILS % (AUTO) 2.4 %; HCT - HEMATOCRIT 42.4 % (37.0-47.0); HGB - HEMOGLOBIN 13.6 g/dL (12.0-16.0); LYMPHOCYTES # (AUTO) 1.8 10^3/uL (1.5-3.5); LYMPHOCYTES % (AUTO) 43.6 %; MEAN CORPUSCULAR HEMOGLOBIN 28.1 pg (27.0-31.0); MEAN CORPUSCULAR HGB CONC 32.1 g/dL (32.0-36.0); MEAN CORPUSCULAR VOLUME 87.6 fL (81.0-99.0); MEAN PLATELET VOLUME 9.7 fL (7.9-10.8); MONOCYTES # (AUTO) 0.3 10^3/uL (0.0-1.0); MONOCYTES % (AUTO) 7.5 %; NEUTROPHILS # (AUTO) 1.9 10^3/uL (1.5-6.6); NEUTROPHILS % (AUTO) 45.1 %; PLT - PLATELET COUNT 208 10^3/uL (130-450); RED BLOOD COUNT 4.84 10^6/uL (4.20-5.40); RED CELL DISTRIBUTION WIDTH 11.6 % (12.0-15.0); WHITE BLOOD COUNT 4.1 x10^3/uL (4.8-10.8)
[2023-03-31 16:00] LABS: ALBUMIN 4.3 g/dL (3.2-5.5); ALBUMIN/GLOBULIN RATIO 1.7 (1.0-2.2); BILIRUBIN,TOTAL 0.7 mg/dL (0.2-1.0); CALCIUM 9.6 mg/dL (8.5-10.3); POTASSIUM 3.9 mmol/L (3.5-4.5); TOTAL PROTEIN 6.8 g/dL (6.4-8.9)
[2023-03-31 16:07] LABS: FERRITIN 63.9 ng/mL (11.0-306.8)
== END 2023-03-31 10:52 | disposition home or self-care (01) ==
LOC: LAB.S 10:51
PROVIDERS: ATTEND Internal Medicine
DX: I10 Essential (primary) hypertension (principal); G25.81 Restless legs syndrome
CPT/HCPCS: 36415; 80053; 82728; 83540; 84466; 85025

== ENCOUNTER 2023-10-06 09:26 | Outpatient (CLI) | payer MEDICARE ==
[2023-10-06 09:46] LABS: BASOPHILS % (AUTO) 0.8 %; EOSINOPHILS # (AUTO) 0.1 10^3/uL (0.0-0.7); EOSINOPHILS % (AUTO) 3.1 %; HCT - HEMATOCRIT 41.6 % (37.0-47.0); HGB - HEMOGLOBIN 13.4 g/dL (12.0-16.0); LYMPHOCYTES # (AUTO) 1.6 10^3/uL (1.5-3.5); LYMPHOCYTES % (AUTO) 40.9 %; MEAN CORPUSCULAR HGB CONC 32.2 g/dL (32.0-36.0); MEAN PLATELET VOLUME 8.6 fL (7.9-10.8); MONOCYTES # (AUTO) 0.2 10^3/uL (0.0-1.0); MONOCYTES % (AUTO) 6.3 %; NEUTROPHILS # (AUTO) 1.8 10^3/uL (1.5-6.6); NEUTROPHILS % (AUTO) 48.4 %; PLT - PLATELET COUNT 188 10^3/uL (130-450); RED BLOOD COUNT 4.78 10^6/uL (4.20-5.40); RED CELL DISTRIBUTION WIDTH 11.8 % (12.0-15.0); WHITE BLOOD COUNT 3.8 x10^3/uL (4.8-10.8)
[2023-10-06 09:58] LABS: BILIRUBIN,URINE NEGATIVE (NEGATIVE); GLUCOSE, URINE (UA) NEGATIVE (NEGATIVE); KETONES,URINE (UA) NEGATIVE (NEGATIVE); LEUKOCYTE ESTERASE, URINE NEGATIVE (NEGATIVE); NITRITE,URINE NEGATIVE (NEGATIVE); OCCULT BLOOD,URINE NEGATIVE (NEGATIVE); PROTEIN,URINE NEGATIVE (NEGATIVE); UROBILINOGEN,URINE 0.2 (NORMAL) E.U./dL (NORMAL)
[2023-10-06 10:07] LABS: CALCIUM 9.4 mg/dL (8.5-10.3); PHOSPHORUS 3.7 mg/dL (2.5-5.0); POTASSIUM 3.9 mmol/L (3.5-4.5); URIC ACID 3.6 mg/dL (2.3-6.6)
[2023-10-06 10:08] LABS: CREATININE,URINE 41.8 mg/dL; PROTEIN/CREATININE RATIO,URINE 0.1 (<=0.2)
[2023-10-06 10:48] LABS: BACTERIA,URINE Rare /HPF (None Seen); CLARITY,URINE CLEAR (CLEAR); RBC,URINE 0-5 /HPF (0-5); SQUAMOUS EPITHELIAL CELL,UR FEW Squamous (<= Few); WBC,URINE 0-3 /HPF (0-5)
== END 2023-10-06 09:27 | disposition home or self-care (01) ==
LOC: LAB 09:26
PROVIDERS: ATTEND Internal Medicine Nephrology
DX: N18.2 Chronic kidney disease, stage 2 (mild) (principal); N28.1 Cyst of kidney, acquired
CPT/HCPCS: 36415; 80069; 81001; 82570; 83970; 84156; 84550; 85025; 87086